=== PATIENT | male | born 1970 | race Two or more races ===

== ENCOUNTER 2022-04-13 15:36 | Outpatient (REF) | payer SELFPAY ==
[2022-04-13 16:37] LABS: MANUAL DIFF FLAG NO
[2022-04-13 16:42] LABS: Basophils Percent Auto 0.5 % (0-2); Eosinophils Percent Auto 3.8 % (0-4); Hematocrit 48.7 % (42.0-52.0); Imm Gran Pct Auto 0.3 % (0.0-0.4); Mean Corpuscular HGB Conc 32.9 g/dl (31.0-36.0); Mean Corpuscular Hemoglobin 29.6 pg (27.0-33.0); Mean Platelet Volume 10.3 fL (9.4-12.4); Neutrophils Absolute Auto 3.9 x10*3/uL (2.0-8.3); Neutrophils Percent Auto 65.4 % (45-73); Platelet Count 222 X10*3/uL (160-400); Red Blood Count 5.41 X10*6/uL (4.60-5.80); Red Cell Distribution Width 12.5 % (11.0-16.0)
[2022-04-13 16:43] LABS: Eosinophils Absolute Auto 0.2 X10*3/uL (0.0-0.4); Imm Gran Abs Auto 0.02 X10*3/uL (0.00-0.03); Lymphocytes Absolute Auto 1.4 X10*3/uL (1.2-4.9); Monocytes Absolute Auto 0.4 X10*3/uL (0.1-1.2)
[2022-04-13 17:56] LABS: Blood Urea Nitrogen 28 mg/dL (9-16)
[2022-04-13 21:08] LABS: Potassium 5.9 mmol/L (3.3-5.1); Sodium 140 mmol/L (135-145)
[2022-04-13 21:09] LABS: Chloride 100 mmol/L (96-108)
[2022-04-13 21:12] LABS: Carbon Dioxide 25 mmol/L (22-29)
[2022-04-13 21:13] LABS: Anion Gap 21 (12-20)
[2022-04-13 21:15] LABS: Estimated Glomerular Filt Rate > 60
[2022-04-13 21:16] LABS: Calcium 10.1 mg/dL (8.4-10.2); Glucose Random 136 mg/dL (60-115)
== END 2022-04-13 15:37 | disposition home or self-care (01) ==
LOC: HO.HMGCLDS 15:36
PROVIDERS: Nurse Practitioner Family; Visit Provider Internal Medicine
DX: I10 Essential (primary) hypertension (principal)
CPT/HCPCS: 36415; 80048; 85025